=== PATIENT | male | born 1960 | race Caucasian/White ===

== ENCOUNTER 2020-07-19 12:51 | Emergency (ER) | payer OTHER ==
[2020-07-19 14:09] LABS: BASOPHIL 0.9 % (0-2); EOSINOPHIL 1.9 % (0-5); HCT 34.6 % (42.0-52.0); HGB 12.5 g/dl (13.2-18.0); LYMPHOCYTE 23.8 % (15-48); MCH 31.5 pg (25.0-31.0); MCHC 36.1 g/dL (32.0-36.0); MCV 87.2 fL (78.0-100.0); MONOCYTE 8.5 % (0-12); MPV 10.2 fL (6.0-9.5); NEUTROPHIL 64.4 % (41-80); NRBC 0; PLT 178 K/uL (150-400); RBC 3.97 M/uL (4.70-6.00); RDW 13.4 % (11.5-14.0); WBC 5.8 K/uL (4.0-10.5)
[2020-07-19 14:37] LABS: BUN/CREAT RATIO (CALC) 20.2 RATIO; CREATININE 1.14 mg/dL (0.67-1.17)
[2020-07-19 15:05] LABS: BILIRUBIN NEGATIVE (NEGATIVE); BLOOD TRACE-INTACT Ery/uL (NEGATIVE); CLARITY CLEAR (CLEAR); COLOR YELLOW (YELLOW); GLUCOSE (U) NORMAL (NORMAL); LEUKOCYTES NEGATIVE Leu/uL (NEGATIVE); NITRITE NEGATIVE (NEGATIVE); PROTEIN 3+ mg/dL (NEGATIVE); UROBILINOGEN 0.2 mg/dL (0.2-1.0); pH 6.5 (5.0-9.0)
[2020-07-19 15:09] LABS: SQUAMOUS EPITHELIAL CELLS RARE; URINARY WBC RARE
== END 2020-07-19 18:58 | disposition home or self-care (01) ==
LOC: FER 12:51
PROVIDERS: Emergency Medicine
DX: I10 Essential (primary) hypertension (principal); E11.9 Type 2 diabetes mellitus without complications; Z86.73 Personal history of transient ischemic attack (TIA), and cerebral infarction without residual deficits
CPT/HCPCS: 36415; 71046; 80048; 81001; 84484; 85025; 93005; J0360; J3490